=== PATIENT | female | born 1950 | race Caucasian/White ===

== ENCOUNTER 2017-02-14 08:51 | Outpatient (CLI) | payer OTHER | END 2017-02-14 19:06 | disposition home or self-care (01) | LOC: SMA 08:51 | PROVIDERS: ATTEND Physician Assistant Medical | DX: Z12.31 Encounter for screening mammogram for malignant neoplasm of breast (principal) | CPT/HCPCS: 77067; G0202 ==

== ENCOUNTER 2018-07-30 09:43 | Outpatient (CLI) | payer OTHER | END 2018-07-30 20:43 | disposition home or self-care (01) | LOC: SMA 09:43 | PROVIDERS: ATTEND Physician Assistant Medical | DX: Z12.31 Encounter for screening mammogram for malignant neoplasm of breast (principal) | CPT/HCPCS: 77067 ==

== ENCOUNTER 2020-05-19 09:03 | Outpatient (CLI) | payer OTHER | END 2020-05-19 19:21 | disposition home or self-care (01) | LOC: SMA 09:03 | PROVIDERS: ATTEND Family Medicine | DX: Z12.31 Encounter for screening mammogram for malignant neoplasm of breast (principal); N64.89 Other specified disorders of breast | CPT/HCPCS: 77067 ==

== ENCOUNTER 2021-05-28 08:10 | Outpatient (CLI) | payer OTHER | END 2021-05-28 21:09 | disposition home or self-care (01) | LOC: SMA 08:10 | PROVIDERS: ATTEND Family Medicine | DX: Z12.31 Encounter for screening mammogram for malignant neoplasm of breast (principal) | CPT/HCPCS: 77067 ==

== ENCOUNTER 2022-11-21 09:12 | Outpatient (CLI) | payer BC | END 2022-11-21 18:27 | disposition home or self-care (01) | LOC: SMA 09:12 | PROVIDERS: ATTEND Family Medicine | DX: Z12.31 Encounter for screening mammogram for malignant neoplasm of breast (principal) | CPT/HCPCS: 77067 ==